=== PATIENT | male | born 1990 | race Caucasian/White ===

== ENCOUNTER 2018-05-16 08:57 | Emergency (ER) | payer OTHER ==
[~2018-05-16] VITALS: Ht 170.2 cm; Wt 65.8 kg
[~2018-05-16 08:57] MED LIST: MELA3
== END 2018-05-16 12:35 | disposition home or self-care (01) ==
LOC: ER 08:57
DX: T18.128A Food in esophagus causing other injury, initial encounter (principal); Z87.891 Personal history of nicotine dependence
CPT/HCPCS: 99283

== ENCOUNTER → 2019-04-30 | Outpatient (CLI) | payer OTHER ==
[~2019-04-30] MED LIST changes: +Atarax10 MG PO; +LORA.5
== END | disposition home or self-care (01) ==
LOC: LAB SHORT 19:24 → LAB 19:24
DX: J02.9 Acute pharyngitis, unspecified (principal)
CPT/HCPCS: 87081

== ENCOUNTER 2022-05-21 07:42 | Day surgery (SDC) | payer OTHER ==
[~2022-05-21] VITALS: Ht 170.2 cm; Wt 54.8 kg
== END 2022-05-21 09:53 | disposition home or self-care (01) ==
LOC: ORSCSDS 07:42
PROVIDERS: Internal Medicine Gastroenterology
PROC: 0D758ZZ Dilation of Esophagus, Via Natural or Artificial Opening Endoscopic (ICD-10-PCS; principal; 2022-05-21 08:45)
PROC: 0DB58ZX Excision of Esophagus, Via Natural or Artificial Opening Endoscopic, Diagnostic (ICD-10-PCS; principal; 2022-05-21 08:45)
DX: R13.10 Dysphagia, unspecified (principal); K44.9 Diaphragmatic hernia without obstruction or gangrene; F43.10 Post-traumatic stress disorder, unspecified; F17.210 Nicotine dependence, cigarettes, uncomplicated; Z79.899 Other long term (current) drug therapy
CPT/HCPCS: 88305; J2250; J2704; J7120